=== PATIENT | male | born 1960 | race Caucasian/White ===

== ENCOUNTER → 2020-06-20 | Outpatient (CLI) | payer BC ==
--- NOTE | 2020-06-20 14:37 | XR ---
EXAMINATION TYPE: XR chest 2V DATE OF EXAM: 06/20/2020 COMPARISON: 02/28/2016 HISTORY: 59-year-old male history of COPD and family history of lung cancer. TECHNIQUE: Frontal and lateral views FINDINGS: Heart normal size. Aorta and pulmonary vasculature within normal limits. Hyperinflation. Subtle nodul arity in the lower lung on both sides likely nipple shadow. Slight asymmetric left hilar prominence. Otherwise, no consolidation or pleural effusion. IMPRESSION: 1. COPD. 2. Subtle lower lung nodularity on either side, likely nipple shadow. 3. Some asymmetric left hilar prominence could represent vascular confluence and superimposition shad ow. Given patient's increased risk for development of lung cancer, consider CT of the chest to exclud e any abnormal lymphadenopathy or nodules.
== END | disposition home or self-care (01) ==
LOC: RADXRMAIN 08:39
PROVIDERS: ATTEND Internal Medicine
DX: J44.9 Chronic obstructive pulmonary disease, unspecified (principal)
CPT/HCPCS: 71046

== ENCOUNTER → 2020-06-29 | Outpatient (CLI) | payer BC ==
--- NOTE | 2020-06-29 09:11 | CT ---
EXAMINATION TYPE: CT chest w con DATE OF EXAM: 06/29/2020 COMPARISON: Radiograph 06/20/2020 HISTORY: 59-year-old male abnormal chest x-ray, R91 oh .8. TECHNIQUE: Contiguous axial scanning of the chest after the administration of 100 mL of Isovue 300. Coronal/sagittal reconstructions performed. CT DLP: 158.2mGycm. Automatic exposure control utilized for a dose reduction. FINDINGS: Heart normal size without pericardial effusion. Some LAD calcification is noted. Mild aneurysm aortic root at 4.0 cm. Ectasia upper descending thoracic aorta 3.3 cm. Mild atheroscler otic arch calcifications with conventional vessel branching anatomy. A few nonenlarged mediastinal lymph nodes. No thoracic lymphadenopathy by CT size criteria with parti cular attention to the left hilum though there is a 9 mm calcified granuloma in the left suprahilar r egion which may in part account for the radiographic finding oh. Advanced centrilobular emphysema. No consolidation or pleural effusion. No suspicious pulmonary nodul es or masses. Visualized upper abdomen shows a calcified granuloma within the spleen. There is bilateral renal sami ical thinning compatible with chronic medical renal disease. Bones: Moderate degenerative disc disease mid to lower thoracic spine. IMPRESSION: 1. COPD with advanced emphysema. 2. No suspicious lymphadenopathy, pulmonary nodule, or mass. A 9 mm calcified granuloma in the left s uprahilar region may in part account for the radiographic finding. Bilateral nipple shadows are confi rmed corresponding to the other radiographic findings. All 3. Mildly aneurysmal aortic root at 4.0 cm.
== END | disposition home or self-care (01) ==
LOC: RADCTMAIN 07:48
PROVIDERS: ATTEND Internal Medicine
DX: J43.9 Emphysema, unspecified (principal); J44.9 Chronic obstructive pulmonary disease, unspecified
CPT/HCPCS: 71260; Q9967

== ENCOUNTER → 2020-07-17 | Outpatient (CLI) | payer BC | END | disposition home or self-care (01) | LOC: LABWHC1 16:13 | PROVIDERS: ATTEND Emergency Medicine | DX: Z20.822 Contact with and (suspected) exposure to COVID-19 (principal) ==

== ENCOUNTER → 2020-07-28 | Outpatient (CLI) | payer BC | END | disposition home or self-care (01) | LOC: LABWHC1 16:23 | PROVIDERS: ATTEND Emergency Medicine | DX: Z20.822 Contact with and (suspected) exposure to COVID-19 (principal) | CPT/HCPCS: U0003; C9803; U0005 ==

== ENCOUNTER → 2020-07-31 | Outpatient (CLI) | payer BC | END | disposition home or self-care (01) | LOC: LABWHC1 15:43 | PROVIDERS: ATTEND Emergency Medicine | DX: Z20.822 Contact with and (suspected) exposure to COVID-19 (principal) | CPT/HCPCS: U0003; C9803 ==

== ENCOUNTER 2021-01-27 09:45 | Inpatient (IN) | payer BC ==
[2021-01-27] MEDS ORDERED: ALBUTEROL NEBULIZED 2.5 MG/3 ML INHALATION STA (09:48)
[2021-01-27] MEDS ORDERED: SODIUM CHLORIDE 0.9% 500 ML 500 ML IV STA (09:48)
[2021-01-27] MEDS ORDERED: TERBUTALINE 1 MG/ML VIAL SQ STA (09:48)
[2021-01-27] MEDS ORDERED: IPRATROPIUM 0.5 MG/2.5 ML NEBU INHALATION STA (09:48)
--- NOTE | 2021-01-27 09:51 | ED ---
General Adult HPI - General Stated complaint: elías Time Seen by Provider: 01/27/21 09:45 Source: patient, RN notes reviewed, old records reviewed - History of Present Illness Initial comments: This is a 60-year-old male with past medical history significant for COPD. Patient states about 3 days ago started having worsening difficulty breathing patient states he continued to take his albuterol but it was getting to the point where was helping also called EMS. According to EMS the patient was oxygenating at 66% when they arrived they gave him a few treatments and steroids and put some oxygen on him and he was oxygenating at 96% on arrival. Patient states he does feel better but he still considerably short of breath per patient denies any chest pain patient denies any fever patient states he did have a dry cough but no sputum production. Patient denies any abdominal pain. Patient denies any back pain. Patient denies any lightheadedness or dizziness. Patient states he quit smoking a while ago. - Related Data Home Medications Medication Instructions Recorded Confirmed amLODIPine [Norvasc] 5 mg PO DAILY 02/28/16 02/28/16 busPIRone HCL 15 mg PO BID 02/28/16 02/28/16 traMADol HCl [Ultram] 50 mg PO BID PRN 02/28/16 02/28/16 Previous Rx's Medication Instructions Recorded Aspirin [Adult Low Dose Aspirin EC] 81 mg PO DAILY #30 tab 02/29/16 Allergies Allergy/AdvReac Type Severity Reaction Status Date / Time No Known Allergies Allergy Verified 02/28/16 10:54 Review of Systems ROS Statement: Those systems with pertinent positive or pertinent negative responses have been documented in the HPI. ROS Other: All systems not noted in ROS Statement are negative. 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 History of Any Multi-Drug Resistant Organisms: None Reported Past Surgical History: Heart Catheterization Additional Past Surgical History / Comment(s): R writst ganglion cystectomy, colonoscopy x2, all teeth extracted in preparation for dentures, past ETOH abuse. Past Anesthesia/Blood Transfusion Reactions: No Reported Reaction Past Psychological History: Anxiety Additional Psychological History / Comment(s): Pt states his adult son resides with him. Pt is independent. He drives. Past Alcohol Use History: None Reported Additional Past Alcohol Use History / Comment(s): Pt states he started smoking in 1973 and is a ppd smoker. He states he was a heavy drinker and quit drinking 03/18/10. Past Drug Use History: Marijuana Additional Drug Use History / Comment(s): Pt likes to smoke 1 joint after work a day. - Past Family History Father Family Medical History: Cancer Additional Family Medical History / Comment(s): father of metastatic colon cancer at the age of 39yrs. Mother Family Medical History: Cancer Additional Family Medical History / Comment(s): Mother of metastatic lung cancer at the age of 72yrs. General Exam - General Exam Comments Initial Comments: GENERAL: Patient is well-developed and well-nourished. Patient is nontoxic and well- hydrated and is in moderate distress. ENT: Neck is soft and supple. No significant lymphadenopathy is noted. Oropharynx is clear. Moist mucous membranes. Neck has full range of motion without eliciting any pain. EYES: The sclera were anicteric and conjunctiva were pink and moist. Extraocular movements were intact and pupils were equal round and reactive to light. Eyelids were unremarkable. PULMONARY: Patient is not having good air exchange and he has diffuse expiratory wheezing CARDIOVASCULAR: There is a regular rate and rhythm without any murmurs gallops or rubs. ABDOMEN: Soft and nontender with normal bowel sounds. SKIN: Skin is clear with no lesions or rashes and otherwise unremarkable. NEUROLOGIC: Patient is alert and oriented x3. Cranial nerves II through XII are grossly intact. Motor and sensory are also intact. Normal speech, volume and content. Symmetrical smile. MUSCULOSKELETAL: Normal extremities with adequate strength and full range of motion. No lower extremity swelling or edema. No calf tenderness. LYMPHATICS: No significant lymphadenopathy is noted PSYCHIATRIC: Normal psychiatric evaluation. Course Vital Signs 01/27/21 01/27/21 01/27/21 09:46 10:17 10:35 Temperature Pulse Rate 131 H 112 H 115 H Respiratory 26 H Rate Blood Pressure 213/128 O2 Sat by Pulse 91 L Oximetry 01/27/21 01/27/21 11:02 11:22 Temperature 98.9 F Pulse Rate 110 H Respiratory 18 Rate Blood Pressure 118/88 O2 Sat by Pulse 90 L Oximetry Medical Decision Making - Medical Decision Making EKG shows sinus tachycardia 130 bpm RI interval is 122 QRS is 120 QT intervals 328 QTC is 482. Patient's EKG shows no ST segment elevation or depression. Patient does have a right bundle branch block. Chest x-ray shows right middle lobe infiltrate this was diagnosed 1155. I started the patient on antibiotics immediately. I spoke with Dr. benites he agreed to admit the patient admitted the patient wrote admitting orders. I continue treatments steroids on the floor. I continued antibiotics on the floor. Patient was placed on BiPAP in the emergency department until he could no longer tolerate it secondary to anxiety. - Lab Data Result diagrams: 01/27/21 10:21 11 10:21 Lab Results 01/27/21 01/27/21 01/27/21 Range/Units 10:21 10:21 10:21 WBC 11.9 H (3.8-10.6) k/uL RBC 5.49 (4.30-5.90) m/uL Hgb 16.1 (13.0-17.5) gm/dL Hct 49.9 (39.0-53.0) % MCV 90.9 (80.0-100.0) fL MCH 29.4 (25.0-35.0) pg MCHC 32.3 (31.0-37.0) g/dL RDW 13.7 (11.5-15.5) % Plt Count 242 (150-450) k/uL MPV 8.6 Neutrophils % 75 % Lymphocytes % 13 % Monocytes % 8 % Eosinophils % 0 % Basophils % 1 % Neutrophils # 8.9 H (1.3-7.7) k/uL Lymphocytes # 1.6 (1.0-4.8) k/uL Monocytes # 0.9 (0-1.0) k/uL Eosinophils # 0.0 (0-0.7) k/uL Basophils # 0.1 (0-0.2) k/uL PT 10.7 (9.0-12.0) sec INR 1.0 (<1.2) APTT 27.4 (22.0-30.0) sec Sodium 129 L (137-145) mmol/L Potassium 5.3 H (3.5-5.1) mmol/L Chloride 97 L (98-107) mmol/L Carbon Dioxide 21 L (22-30) mmol/L Anion Gap 11 mmol/L BUN 37 H (9-20) mg/dL Creatinine 1.55 H (0.66-1.25) mg/dL Est GFR (CKD-EPI)AfAm 55 (>60 ml/min/1.73 sqM) Est GFR (CKD-EPI)NonAf 47 (>60 ml/min/1.73 sqM) Glucose 142 H (74-99) mg/dL Plasma Lactic Acid Niall (0.7-2.0) mmol/L Calcium 8.7 (8.4-10.2) mg/dL Magnesium 1.9 (1.6-2.3) mg/dL Total Bilirubin 0.6 (0.2-1.3) mg/dL AST 40 (17-59) U/L ALT 20 (4-49) U/L Alkaline Phosphatase 89 (38-126) U/L Troponin I (0.000-0.034) ng/mL NT-Pro-B Natriuret Pep pg/mL Total Protein 6.3 (6.3-8.2) g/dL Albumin 3.3 L (3.5-5.0) g/dL Coronavirus (PCR) (Not Detectd) 01/27/21 01/27/21 01/27/21 Range/Units 10:21 10:21 10:21 WBC (3.8-10.6) k/uL RBC (4.30-5.90) m/uL Hgb (13.0-17.5) gm/dL Hct (39.0-53.0) % MCV (80.0-100.0) fL MCH (25.0-35.0) pg MCHC (31.0-37.0) g/dL RDW (11.5-15.5) % Plt Count (150-450) k/uL MPV Neutrophils % % Lymphocytes % % Monocytes % % Eosinophils % % Basophils % % Neutrophils # (1.3-7.7) k/uL Lymphocytes # (1.0-4.8) k/uL Monocytes # (0-1.0) k/uL Eosinophils # (0-0.7) k/uL Basophils # (0-0.2) k/uL PT (9.0-12.0) sec INR (<1.2) APTT (22.0-30.0) sec Sodium (137-145) mmol/L Potassium (3.5-5.1) mmol/L Chloride (98-107) mmol/L Carbon Dioxide (22-30) mmol/L Anion Gap mmol/L BUN (9-20) mg/dL Creatinine (0.66-1.25) mg/dL Est GFR (CKD-EPI)AfAm (>60 ml/min/1.73 sqM) Est GFR (CKD-EPI)NonAf (>60 ml/min/1.73 sqM) Glucose (74-99) mg/dL Plasma Lactic Acid Niall 1.0 (0.7-2.0) mmol/L Calcium (8.4-10.2) mg/dL Magnesium (1.6-2.3) mg/dL Total Bilirubin (0.2-1.3) mg/dL AST (17-59) U/L ALT (4-49) U/L Alkaline Phosphatase (38-126) U/L Troponin I 0.039 H* (0.000-0.034) ng/mL NT-Pro-B Natriuret Pep 1920 pg/mL Total Protein (6.3-8.2) g/dL Albumin (3.5-5.0) g/dL Coronavirus (PCR) (Not Detectd) 01/27/21 Range/Units 10:21 WBC (3.8-10.6) k/uL RBC (4.30-5.90) m/uL Hgb (13.0-17.5) gm/dL Hct (39.0-53.0) % MCV (80.0-100.0) fL MCH (25.0-35.0) pg MCHC (31.0-37.0) g/dL RDW (11.5-15.5) % Plt Count (150-450) k/uL MPV Neutrophils % % Lymphocytes % % Monocytes % % Eosinophils % % Basophils % % Neutrophils # (1.3-7.7) k/uL Lymphocytes # (1.0-4.8) k/uL Monocytes # (0-1.0) k/uL Eosinophils # (0-0.7) k/uL Basophils # (0-0.2) k/uL PT (9.0-12.0) sec INR (<1.2) APTT (22.0-30.0) sec Sodium (137-145) mmol/L Potassium (3.5-5.1) mmol/L Chloride (98-107) mmol/L Carbon Dioxide (22-30) mmol/L Anion Gap mmol/L BUN (9-20) mg/dL Creatinine (0.66-1.25) mg/dL Est GFR (CKD-EPI)AfAm (>60 ml/min/1.73 sqM) Est GFR (CKD-EPI)NonAf (>60 ml/min/1.73 sqM) Glucose (74-99) mg/dL Plasma Lactic Acid Niall (0.7-2.0) mmol/L Calcium (8.4-10.2) mg/dL Magnesium (1.6-2.3) mg/dL Total Bilirubin (0.2-1.3) mg/dL AST (17-59) U/L ALT (4-49) U/L Alkaline Phosphatase (38-126) U/L Troponin I (0.000-0.034) ng/mL NT-Pro-B Natriuret Pep pg/mL Total Protein (6.3-8.2) g/dL Albumin (3.5-5.0) g/dL Coronavirus (PCR) Not Detected (Not Detectd) Disposition Clinical Impression: Pneumonia, Acute exacerbation of chronic obstructive pulmonary disease (COPD) Disposition: ADMITTED IP TO THIS HOSP Referrals: Renzo Cohen MD [Primary Care Provider] - 1-2 days Time of Disposition: 11:57
[2021-01-27] MEDS ORDERED: hydrALAZINE HCL 20 MG/ML 1 ML VIAL IVP STA (10:01)
[2021-01-27 10:35] LABS: Basophils # (A) 0.1 k/uL (0-0.2); Basophils % (A) 1 %; Eosinophils % (A) 0 %; HCT 49.9 % (39.0-53.0); HGB 16.1 gm/dL (13.0-17.5); Lymphocytes # (A) 1.6 k/uL (1.0-4.8); Lymphocytes % (A) 13 %; MCH 29.4 pg (25.0-35.0); MCHC 32.3 g/dL (31.0-37.0); MCV 90.9 fL (80.0-100.0); Mean Platelet Volume 8.6; Monocytes # (A) 0.9 k/uL (0-1.0); Monocytes % (A) 8 %; Neutrophils # (A) 8.9 k/uL (1.3-7.7); Neutrophils % (A) 75 %; Platelet Count 242 k/uL (150-450); RBC 5.49 m/uL (4.30-5.90); RDW 13.7 % (11.5-15.5); WBC 11.9 k/uL (3.8-10.6)
--- NOTE | 2021-01-27 10:41 | XR ---
EXAMINATION TYPE: XR chest 1V portable DATE OF EXAM: 01/27/2021 COMPARISON: 02/28/2016 and 06/20/2020 HISTORY: Shortness of breath TECHNIQUE: Single frontal view of the chest is obtained. FINDINGS: There is suggestion of areas of ill-defined partially consolidative opacity in the right m id and lower lung zone which could represent an early pneumonic process. The left lung is clear. There is no pneumothorax or pleural effusion. Heart size is normal and the pu lmonary vasculature is not congested. The osseous structures are intact IMPRESSION: Infiltrates in the right lung as described above. The findings suggest acute cardiopulmo nary disease.
[2021-01-27 10:50] LABS: Albumin 3.3 g/dL (3.5-5.0); Calcium 8.7 mg/dL (8.4-10.2); Magnesium 1.9 mg/dL (1.6-2.3); Potassium 5.3 mmol/L (3.5-5.1); Total Bilirubin 0.6 mg/dL (0.2-1.3); Total Protein 6.3 g/dL (6.3-8.2)
[2021-01-27 10:52] LABS: Partial Thromboplastin Time 27.4 sec (22.0-30.0); Prothrombin Time 10.7 sec (9.0-12.0)
[2021-01-27] MEDS ORDERED: LORazepam 2 MG/ML INJ IV STA (11:20)
[2021-01-27] MEDS ORDERED: LEVOFLOXACIN 750MG-D5W PMX 750 MG in DEXTROSE/WATER 1 150ML.BAG IVPB STA (11:53)
[2021-01-27] MEDS: methylPREDNISolone SOD SUCCI 125 MG/2 ML VIAL IV SCH ×3 (13:38→23:10)
[2021-01-27] MEDS: HEPARIN SODIUM,PORCINE/PF 5,000 UNIT/0.5 ML SYRINGE SQ SCH (20:35)
[2021-01-27] MEDS: IPRATROPIUM-ALBUTEROL 3 ML NEB INHALATION PRN (20:53)
[2021-01-27] MEDS: BUDESONIDE 1 MG/2 ML NEBU INHALATION SCH (20:54)
--- NOTE | 2021-01-27 22:52 | P.HPIM ---
History of Present Illness H&P Date: 01/27/21 Chief Complaint: Difficulty in breathing Patient is a 60-year-old male with a known history of CVA/TIA, hypertension, COPD and previous history of smoking and marijuana use and also previous history of alcohol abuse presents to ER with complaints of worsening shortness of breath and exertional dyspnea for the past 3 days ago. Patient did take his albuterol inhaler and Breo Ellipta at home without much improvement. Patient called EMS and found to have pulse ox 6 6% when they arrived at home. Patient was given breathing treatments and oxygenation improved to 96% on arrival to ER. Patient was placed on BiPAP in the ER. Patient is awake alert and oriented. Denies any complaints of chest pain. No nausea vomiting abdominal pain. Patient does have cough without sputum production. Denies any recent illnesses. No fever no chills. Chest x-ray showed infiltrate in the right lung. This finding suggest acute cardiopulmonary disease. EKG showed sinus tachycardia. Right atrial enlargement. Laboratory data showed WBC 11.9 hemoglobin 16.1 and platelets 242 and neut rophils 8.9 Sodium 129 potassium 5.3 chloride 97, BUN 37 creatinine 1.55 and blood sugar is 142 and troponin 0.0 39, proBNP 1920 COVID-19 PCR not detected Review of Systems Constitutional: Patient denies any fever or chills . No generalized weakness or weight loss. Abdomen: Patient denied nausea vomiting and diarrhea and abdominal pain. Cardiovascular: Patient denies any chest pain + short of breath no palpitations. Respiratory: Patient does have cough without sputum production and shortness of breath. Neurologic: Patient denied any numbness or tingling headache. Musculoskeletal: Patient denies any complaints of joint swelling or deformity. Skin: Negative Psychiatric: Negative Endocrine: No heat or cold intolerance. No recent weight gain. Genitourinary: No dysuria or hematuria. 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 History of Any Multi-Drug Resistant Organisms: None Reported Past Surgical History: Heart Catheterization Additional Past Surgical History / Comment(s): R writst ganglion cystectomy, colonoscopy x2, all teeth extracted in preparation for dentures, past ETOH abuse. Past Anesthesia/Blood Transfusion Reactions: No Reported Reaction Past Psychological History: Anxiety Additional Psychological History / Comment(s): Pt states his adult son resides with him. Pt is independent. He drives. Smoking Status: Former smoker Past Alcohol Use History: None Reported Additional Past Alcohol Use History / Comment(s): Pt states he started smoking in 1973 and is a ppd smoker. He states he was a heavy drinker and quit drinking 03/18/10. Past Drug Use History: Marijuana Additional Drug Use History / Comment(s): Pt likes to smoke 1 joint after work a day. - Past Family History Father Family Medical History: Cancer Additional Family Medical History / Comment(s): father of metastatic colon cancer at the age of 39yrs. Mother Family Medical History: Cancer Additional Family Medical History / Comment(s): Mother of metastatic lung cancer at the age of 72yrs. Medications and Allergies Home Medications Medication Instructions Recorded Confirmed Type Albuterol Sulfate [Proair Hfa] 2 puff INHALATION RT-QID PRN 01/27/21 01/27/21 History Budesonide [Pulmicort Flexhaler] 1 puff INHALATION RT-BID PRN 01/27/21 01/27/21 History Umeclidinium Brm/Vilanterol Tr 1 puff INHALATION RT-DAILY 01/27/21 01/27/21 History [Anoro Ellipta 62.5-25 Mcg INH] Allergies Allergy/AdvReac Type Severity Reaction Status Date / Time No Known Allergies Allergy Verified 01/27/21 12:41 Physical Exam Vitals: Vital Signs Temp Pulse Pulse Resp BP BP Pulse Ox 01/27/21 14:00 97.7 F 92 20 145/82 95 01/27/21 12:52 98.5 F 95 25 H 142/81 95 01/27/21 11:22 98.9 F 01/27/21 11:02 110 H 18 118/88 90 L 01/27/21 10:35 115 H 01/27/21 10:17 112 H 01/27/21 09:46 131 H 26 H 213/128 91 L Intake and Output 01/27/21 01/27/21 01/27/21 06:59 14:59 22:59 Intake Total 580 Balance 580 Intake: Intake, IV Titration 100 Amount Levofloxacin 750Mg-D5w 100 Pmx 750 mg In Dextrose/ Water 1 150ml.bag @ 100 mls/hr IVPB Q24H [facility] Rx#: [id number] Oral 480 Other: # Voids 2 Weight 61.235 kg PHYSICAL EXAMINATION: Patient is lying in the bed comfortably, no acute distress, awake alert and oriented. on bipap. HEENT: Normocephalic. Neck is supple. Pupils reactive. Nostrils clear. Oral cavity is moist. Neck reveals no JVD, carotid bruits, or thyromegaly. CHEST EXAMINATION: Trachea is central. Symmetrical expansion. Patient does have bilateral diffuse rhonchi and wheezing. Diminished sounds throughout.. CARDIAC: Normal S1, S2 with no gallops. No murmurs ABDOMEN: Soft. Bowel sounds normal. No organomegaly. No abdominal bruits. Extremities: reveal no edema. No clubbing or cyanosis Neurologically awake, alert, oriented x3 with well-coordinated movements. No gross focal deficits noted Skin: No rash or skin lesions. Psychiatric: Cooperative. Musculoskeletal: No joint swelling or deformity. Normal range of motion. Results CBC & Chem 7: 01/27/21 10:21 01/27/21 10:21 Labs: Abnormal Lab Results - Last 24 Hours (Table) 01/27/21 01/27/21 01/27/21 Range/Units 10:21 10:21 10:21 WBC 11.9 H (3.8-10.6) k/uL Neutrophils # 8.9 H (1.3-7.7) k/uL Sodium 129 L (137-145) mmol/L Potassium 5.3 H (3.5-5.1) mmol/L Chloride 97 L (98-107) mmol/L Carbon Dioxide 21 L (22-30) mmol/L BUN 37 H (9-20) mg/dL Creatinine 1.55 H (0.66-1.25) mg/dL Glucose 142 H (74-99) mg/dL Troponin I 0.039 H* (0.000-0.034) ng/mL Albumin 3.3 L (3.5-5.0) g/dL Thrombosis Risk Factor Assmnt - DVT/VTE Prophylaxis DVT/VTE Prophylaxis: Pharmacologic Prophylaxis ordered - Choose All That Apply Any of the Below Risk Factors Present?: Yes Each Factor Represents 1 point: Age 41-60 years Other Risk Factors: Yes Each Risk Factor Represents 2 Points: Age 61-74 years Thrombosis Risk Factor Assessment Total Risk Factor Score: 3 Thrombosis Risk Factor Assessment Level: Moderate Risk Assessment and Plan Assessment: Acute hypoxic respiratory failure secondary to COPD exacerbation Right lung pneumonia Elevated troponin level possible type II [place]. Hypovolemic hyponatremia Acute kidney injury likely prerenal Mild hyperkalemia due to LILY Previously of smoking and alcohol abuse Marijuana use History of CVA/TIA DVT prophylaxis with heparin subcu Plan: Patient is currently on BiPAP with settings 12 x 6. Continue with oxygen supple mentation. Patient was started on Solu-Medrol 60 mg IV every 6 hourly, DuoNeb's and Pulmicort inhalation. Continue with antibiotic, Levaquin. Follow-up culture reports. Pulmonary will be consulted. Prognosis guarded at this time. Time with Patient: Greater than 30
[2021-01-28] MEDS: methylPREDNISolone SOD SUCCI 125 MG/2 ML VIAL IV SCH ×3 (05:33→17:26)
[2021-01-28] MEDS: HEPARIN SODIUM,PORCINE/PF 5,000 UNIT/0.5 ML SYRINGE SQ SCH ×2 (08:29→17:26)
[2021-01-28] MEDS: BUDESONIDE 1 MG/2 ML NEBU INHALATION SCH ×2 (08:59→19:50)
[2021-01-28] MEDS: FORMOTEROL FUMARATE 20 MCG/2 ML NEBU INHALATION SCH ×2 (08:59→19:50)
[2021-01-28] MEDS ORDERED: LEVOFLOXACIN 750MG-D5W PMX 750 MG in DEXTROSE/WATER 1 150ML.BAG IVPB SCH (12:00)
[2021-01-28 12:39] LABS: African American GFR (CKD) 52.7 (60.0-200.0); Anion Gap 14.6 mmol/L (4.00-12.00); BUN/Creat Ratio 21.94 Ratio (12.00-20.00); Basophils # (A) 0.02 X 10*3/uL (0.00-0.10); Basophils % (A) 0.2 %; Blood Urea Nitrogen 35.1 mg/dL (9.0-27.0); Calcium 9.3 mg/dL (8.7-10.3); Carbon Dioxide 24.4 mmol/L (21.6-31.8); Eosinophils # (A) 0 X 10*3/uL (0.04-0.35); Eosinophils % (A) 0 %; HCT 49.2 % (39.6-50.0); HGB 15.6 g/dL (13.0-17.0); Lymphocytes # (A) 0.66 X 10*3/uL (0.90-5.00); Lymphocytes % (A) 6.5 %; MCH 29.1 pg (27.0-32.0); MCHC 31.7 g/dL (32.0-37.0); MCV 91.8 fL (80.0-97.0); Mean Platelet Volume 10.9 fL (9.5-12.2); Monocytes # (A) 0.44 X 10*3/uL (0.20-1.00); Monocytes % (A) 4.3 %; Neutrophils # (A) 9.02 X 10*3/uL (1.80-7.70); Neutrophils % (A) 88.7 %; Non-African American GFR(CKD) 45.5 (60.0-200.0); Platelet Count 271 X 10*3/uL (140-440); Potassium 4.4 mmol/L (3.5-5.5); RBC 5.36 X 10*6/uL (4.40-5.60); RDW 14.5 % (11.5-14.5); WBC 10.17 X 10*3/uL (4.50-10.00)
--- NOTE | 2021-01-28 15:20 | P.CNPUL ---
History of Present Illness Consult date: 01/28/21 Requesting physician: Sheng E Jesica Reason for consult: dyspnea, cough, COPD, hypoxemia, abnormal CXR/CT Chief complaint: Shortness of breath. History of present illness: Pulmonary consultation dated 01/28/2021. 60-year-old male with history of severe COPD. I forcefully, he continues to smoke cigarettes. I believe he sees one of my partners in the office. The patient states for last 3 or 4 days, he's been having increasing shortness of breath. In addition, he complaints of wheezing, chest congestion, and cough. Apparently when EMS arrived, his saturations were only 66%. He received some treatments from EMS, and steroids, and saturations improved after receiving supplemental oxygen. Currently, the patient is feeling much better. Certainly not back to baseline. He denies any chest pain or chest pressure. He's not having any fever or chills. He denies any nausea, vomiting, or diarrhea. In addition to COPD, the patient does have a history of hypertension. He also suffers from a history of CVA. Also, after a traumatic fall in 2005, he sustained for rib fractures. White count 10.17, hemoglobin 15.6, hematocrit 49.2, platelet count 371,000. Sodium 137, potassium 4.4, chlorides 98, CO2 24, anion gap 15, BUN 35, and creatinine 1.6. Troponins were 0.039 and 0.017. N- terminal proBNP was 1920. Coronavirus testing was negative. Chest x-ray shows changes of COPD, and some possible infiltrates in the right midlung. Review of Systems REVIEW OF SYSTEMS: CONSTITUTIONAL: [Negative.] NEUROLOGIC: [ Negative.] HEENT: [ Negative.] CARDIAC: [Negative.] PULMONARY: Shortness of breath, chest congestion, chest tightness, wheezing, and cough with some phlegm production. GI: [Negative.] : [Negative.] RHEUMATOLOGIC: [ Negative.] IMMUNOLOGIC: [ Negative.] ENDOCRINE: [Negative. ] DERMATOLOGIC: [Negative.] Past Medical History Past Medical History: CVA/TIA, Hypertension Additional Past Medical History / Comment(s): Pt states he has had 2 CVA's in the past with last one in 2004, "spot"" on R lung, 2006 fell and fractured 4 ribs R side. History of Any Multi-Drug Resistant Organisms: None Reported Past Surgical History: Heart Catheterization Additional Past Surgical History / Comment(s): R writst ganglion cystectomy, colonoscopy x2, all teeth extracted in preparation for dentures, past ETOH abuse. Past Anesthesia/Blood Transfusion Reactions: No Reported Reaction Past Psychological History: Anxiety Additional Psychological History / Comment(s): Pt states his adult son resides with him. Pt is independent. He drives. Smoking Status: Former smoker Past Alcohol Use History: None Reported Additional Past Alcohol Use History / Comment(s): Pt states he started smoking in 1973 and is a ppd smoker. He states he was a heavy drinker and quit drinking 03/18/10. Past Drug Use History: Marijuana Additional Drug Use History / Comment(s): Pt likes to smoke 1 joint after work a day. - Past Family History Father Family Medical History: Cancer Additional Family Medical History / Comment(s): father of metastatic colon cancer at the age of 39yrs. Mother Family Medical History: Cancer Additional Family Medical History / Comment(s): Mother of metastatic lung cancer at the age of 72yrs. Medications and Allergies Home Medications Medication Instructions Recorded Confirmed Type Albuterol Sulfate [Proair Hfa] 2 puff INHALATION RT-QID PRN 01/27/21 01/27/21 History Budesonide [Pulmicort Flexhaler] 1 puff INHALATION RT-BID PRN 01/27/21 01/27/21 History Umeclidinium Brm/Vilanterol Tr 1 puff INHALATION RT-DAILY 01/27/21 01/27/21 History [Anoro Ellipta 62.5-25 Mcg INH] Allergies Allergy/AdvReac Type Severity Reaction Status Date / Time No Known Allergies Allergy Verified 01/27/21 12:41 Physical Exam Osteopathic Statement: *. No significant issues noted on an osteopathic structural exam other than those noted in the History and Physical/Consult. Vitals: Vital Signs Temp Pulse Pulse Resp BP Pulse Ox 01/28/21 14:54 98.1 F 83 21 131/83 96 01/28/21 10:39 97.5 F L 77 23 159/95 97 01/28/21 07:56 97 01/28/21 07:52 81 20 01/28/21 02:00 97.4 F L 81 26 H 116/86 95 01/27/21 21:11 87 01/27/21 20:54 86 01/27/21 20:00 86 12 01/27/21 19:54 97.3 F L 86 12 153/84 97 Intake and Output 01/28/21 01/28/21 01/28/21 06:59 14:59 22:59 Intake Total Balance Intake: Oral Mild conversational dyspnea, oriented 3, without use of accessory muscles or audible wheezing. HEENT examination is grossly unremarkable. Neck supple. Full range of motion. No adenopathy thyromegaly or neck vein distention. Cardiovascular examination reveals regular rhythm rate. S1-S2 normal. No S3 or S4. No discernible murmur noted. Heart sounds are distant. Heart rate 83 bpm. Lungs reveal few some bilateral expiratory rhonchi and expiratory wheezes. Breath sounds are diminished throughout. No crackles. Saturations are 96% on 6 L nasal cannula. Abdomen soft bowel sounds are heard. No masses or tenderness. Extremities are intact. No cyanosis clubbing or edema. Skin is without rash or lesion. Neurologic examination is brief but nonfocal. Results - Laboratory Findings CBC and BMP: 01/28/21 08:36 01/28/21 08:36 PT/INR, D-dimer PT 10.7 sec (9.0-12.0) 01/27/21 10:21 INR 1.0 (<1.2) 01/27/21 10:21 Abnormal lab findings: Abnormal Labs 01/27/21 01/27/21 01/27/21 10:21 10:21 10:21 WBC 11.9 H MCHC Neutrophils # 8.9 H Lymphocytes # Eosinophils # Sodium 129 L Potassium 5.3 H Chloride 97 L Carbon Dioxide 21 L Anion Gap BUN 37 H Creatinine 1.55 H Est GFR (CKD-EPI)AfAm Est GFR (CKD-EPI)NonAf BUN/Creatinine Ratio Glucose 142 H Troponin I 0.039 H* Albumin 3.3 L 01/28/21 01/28/21 08:36 08:36 WBC 10.17 H MCHC 31.7 L Neutrophils # 9.02 H Lymphocytes # 0.66 L Eosinophils # 0 L Sodium Potassium Chloride Carbon Dioxide Anion Gap 14.60 H BUN 35.1 H Creatinine 1.6 H Est GFR (CKD-EPI)AfAm 52.7 L Est GFR (CKD-EPI)NonAf 45.5 L BUN/Creatinine Ratio 21.94 H Glucose 206 H Troponin I Albumin - Diagnostic Findings Chest x-ray: image reviewed Assessment and Plan Assessment: Acute exacerbation of COPD, complicated by possible pneumonia, right midlung. Ongoing tobacco use and nicotine addiction. History of hypertension. History of CVA. Prior history of trauma to the right chest, with multiple rib fractures, 2005. Previous history of heavy alcohol use. Plan: Plan dated 01/28/2021. The patient should get DuoNeb, 4 times a day and when necessary. In addition, the patient should get Pulmicort 1 mg mixed with formoterol 20 g twice a day. In addition, the patient should get Solu-Medrol 60 mg every 6 hours. In addition, the patient should get antibiotics, for possible pneumonia in the right lung area. We we'll continue to follow and make recommendations where appropriate. We counseled the patient about the importance of smoking cessation. Prognosis is guarded. Time with Patient: Greater than 30
[2021-01-29] MEDS: HEPARIN SODIUM,PORCINE/PF 5,000 UNIT/0.5 ML SYRINGE SQ SCH ×3 (04:50→15:54)
[2021-01-29] MEDS: methylPREDNISolone SOD SUCCI 125 MG/2 ML VIAL IV SCH ×4 (07:32→17:17)
[2021-01-29] MEDS: IPRATROPIUM-ALBUTEROL 3 ML NEB INHALATION PRN ×2 (08:22→11:31)
[2021-01-29] MEDS: FORMOTEROL FUMARATE 20 MCG/2 ML NEBU INHALATION SCH ×2 (08:22→19:52)
[2021-01-29] MEDS: BUDESONIDE 1 MG/2 ML NEBU INHALATION SCH ×2 (08:22→19:52)
[2021-01-29 11:00] LABS: Anion Gap 9.7 mmol/L (4.00-12.00); BUN/Creat Ratio 30.86 Ratio (12.00-20.00); Blood Urea Nitrogen 43.2 mg/dL (9.0-27.0); Calcium 9.4 mg/dL (8.7-10.3); Carbon Dioxide 26.3 mmol/L (21.6-31.8); Non-African American GFR(CKD) 53.5 (60.0-200.0); Potassium 5.3 mmol/L (3.5-5.5)
[2021-01-29 11:09] LABS: Basophils # (A) 0.02 X 10*3/uL (0.00-0.10); Basophils % (A) 0.1 %; Eosinophils # (A) 0 X 10*3/uL (0.04-0.35); Eosinophils % (A) 0 %; HCT 44.5 % (39.6-50.0); HGB 14.3 g/dL (13.0-17.0); Lymphocytes # (A) 1.13 X 10*3/uL (0.90-5.00); Lymphocytes % (A) 7.9 %; MCH 28.9 pg (27.0-32.0); MCHC 32.1 g/dL (32.0-37.0); MCV 89.9 fL (80.0-97.0); Mean Platelet Volume 11.1 fL (9.5-12.2); Monocytes # (A) 0.64 X 10*3/uL (0.20-1.00); Monocytes % (A) 4.4 %; Neutrophils # (A) 12.51 X 10*3/uL (1.80-7.70); Platelet Count 272 X 10*3/uL (140-440); RBC 4.95 X 10*6/uL (4.40-5.60); RDW 14.3 % (11.5-14.5); WBC 14.39 X 10*3/uL (4.50-10.00)
--- NOTE | 2021-01-29 12:47 | P.PN ---
Subjective Progress Note Date: 01/29/21 60-year-old male with history of severe COPD. I forcefully, he continues to smoke cigarettes. I believe he sees one of my partners in the office. The patient states for last 3 or 4 days, he's been having increasing shortness of breath. In addition, he complaints of wheezing, chest congestion, and cough. Apparently when EMS arrived, his saturations were only 66%. He received some treatments from EMS, and steroids, and saturations improved after receiving supplemental oxygen. Currently, the patient is feeling much better. Certainly not back to baseline. He denies any chest pain or chest pressure. He's not having any fever or chills. He denies any nausea, vomiting, or diarrhea. In addition to COPD, the patient does have a history of hypertension. He also suffers from a history of CVA. Also, after a traumatic fall in 2005, he sustained for rib fractures. White count 10.17, hemoglobin 15.6, hematocrit 49.2, platelet count 371,000. Sodium 137, potassium 4.4, chlorides 98, CO2 24, anion gap 15, BUN 35, and creatinine 1.6. Troponins were 0.039 and 0.017. N- terminal proBNP was 1920. Coronavirus testing was negative. Chest x-ray shows changes of COPD, and some possible infiltrates in the right midlung. On today's evaluation of 01/29/2021 the patient is better and the patient is less short of breath compared to yesterday. The patient was started with Levaquin, Solu-Medrol, Pulmicort Respules, DuoNeb nebulized treatments on the clock. He has a congested cough. Unable to bring up much of sputum. White cell count is 14.3 and the rest of the blood work and electrodes are within normal limits. He did have some mild troponin leak, minimal at this point in time. Covid 19 testing was negative. Sputum has not been collected for cultures. Objective - Vital Signs Vital signs: Vital Signs Temp 98.5 F 01/29/21 08:00 Pulse 82 01/29/21 11:31 Resp 18 01/29/21 08:00 BP 140/87 01/29/21 08:00 Pulse Ox 94 L 01/29/21 08:22 Intake & Output 01/28/21 01/29/21 01/29/21 18:59 06:59 18:59 Other: # Voids 3 3 - Exam Mild conversational dyspnea, oriented 3, without use of accessory muscles or audible wheezing. HEENT examination is grossly unremarkable. Neck supple. Full range of motion. No adenopathy thyromegaly or neck vein distention. Cardiovascular examination reveals regular rhythm rate. S1-S2 normal. No S3 or S4. No discernible murmur noted. Heart sounds are distant. Heart rate 83 bpm. Lungs reveal few some bilateral expiratory rhonchi and expiratory wheezes. Breath sounds are diminished throughout. No crackles. Saturations are 96% on 6 L nasal cannula. Abdomen soft bowel sounds are heard. No masses or tenderness. Extremities are intact. No cyanosis clubbing or edema. Skin is without rash or lesion. Neurologic examination is brief but nonfocal. - Labs CBC & Chem 7: 01/29/21 07:22 01/29/21 07:22 Labs: Abnormal Lab Results - Last 24 Hours (Table) 01/29/21 01/29/21 Range/Units 07:22 07:22 WBC 14.39 H (4.50-10.00) X 10*3/uL Immature Gran # 0.09 H (0.00-0.04) X 10*3/uL Neutrophils # 12.51 H (1.80-7.70) X 10*3/uL Eosinophils # 0 L (0.04-0.35) X 10*3/uL BUN 43.2 H (9.0-27.0) mg/dL Est GFR (CKD-EPI)NonAf 53.5 L (60.0-200.0) BUN/Creatinine Ratio 30.86 H (12.00-20.00) Ratio Glucose 150 H (70-110) mg/dL Assessment and Plan Plan: Acute exacerbation of COPD, complicated by possible pneumonia, right midlung. Clinically improving. The patient is on Levaquin. The patient will be giving us a sputum sample for cultures. Less short of breath compared to yesterday. Ongoing tobacco use and nicotine addiction. History of hypertension. History of CVA. Prior history of trauma to the right chest, with multiple rib fractures, 2005. Previous history of heavy alcohol use. Plan Repeat chest x-ray in the morning Continue Levaquin Added Perforomist in combination with budesonide nebulized treatments twice a day Continue DuoNeb about treatments around the clock Heparin subcu for DVT prophylaxis Oxygen therapy to maintain a saturation above 90% Continued IV Solu-Medrol COVID 19 vaccination has been obtained by this patient is marked We'll continue to follow
[2021-01-29 14:39] VITALS: BMI 18.8
--- NOTE | 2021-01-29 23:21 | P.PN ---
Subjective Progress Note Date: 01/28/21 Patient is a 60-year-old male with a known history of CVA/TIA, hypertension, COPD and previous history of smoking and marijuana use and also previous history of alcohol abuse presents to ER with complaints of worsening shortness of breath and exertional dyspnea for the past 3 days ago. Patient did take his albuterol inhaler and Breo Ellipta at home without much improvement. Patient called EMS and found to have pulse ox 6 6% when they arrived at home. Patient was given breathing treatments and oxygenation improved to 96% on arrival to ER. Patient was placed on BiPAP in the ER. Patient is awake alert and oriented. Denies any complaints of chest pain. No nausea vomiting abdominal pain. Patient does have cough without sputum production. Denies any recent illnesses. No fever no chills. Chest x-ray showed infiltrate in the right lung. This finding suggest acute cardiopulmonary disease. EKG showed sinus tachycardia. Right atrial enlargement. Laboratory data showed WBC 11.9 hemoglobin 16.1 and platelets 242 and neutrophils 8.9 Sodium 129 potassium 5.3 chloride 97, BUN 37 creatinine 1.55 and blood sugar is 142 and troponin 0.0 39, proBNP 1920 COVID-19 PCR not detected 01/28/2021 Patient is currently lying in the bed. Awake alert and oriented. Appears to been short of breath and bilateral diminished air entry. Otherwise patient is nasal cannula oxygen. Off BiPAP. Patient has been afebrile. Continued on duo nebs IV steroids and breathing treatments. Pulmonary is on board. Laboratory showed WBC 10.1 hemoglobin 15.6 and platelets 271 BUN 35 and creatinine 1.6 and blood sugar is 206-second troponin level 0.017. Current medications reviewed. Objective - Vital Signs Vital signs: Vital Signs Temp 98.1 F 01/28/21 14:54 Pulse 83 01/28/21 14:54 Resp 21 01/28/21 14:54 BP 131/83 01/28/21 14:54 Pulse Ox 96 01/28/21 14:54 Intake & Output 01/27/21 01/28/21 01/28/21 19:59 06:59 18:59 Intake Total Balance Weight Intake: Intake, IV Titration Amount Levofloxacin 750Mg-D5w Pmx 750 mg In Dextrose/ Water 1 150ml.bag @ 100 mls/hr IVPB Q24H [facility] Rx#: [id number] Oral Other: # Voids - Exam PHYSICAL EXAMINATION: Patient is lying in the bed comfortably, no acute distress, awake alert and oriented. HEENT: Normocephalic. Neck is supple. Pupils reactive. Nostrils clear. Oral cavity is moist. Neck reveals no JVD, carotid bruits, or thyromegaly. CHEST EXAMINATION: Trachea is central. Symmetrical expansion. Patient does have bilateral diffuse rhonchi and wheezing. Diminished sounds throughout.. CARDIAC: Normal S1, S2 with no gallops. No murmurs ABDOMEN: Soft. Bowel sounds normal. No organomegaly. No abdominal bruits. Extremities: reveal no edema. No clubbing or cyanosis Neurologically awake, alert, oriented x3 with well-coordinated movements. No gross focal deficits noted Skin: No rash or skin lesions. Psychiatric: Cooperative. Musculoskeletal: No joint swelling or deformity. Normal range of motion. - Labs CBC & Chem 7: 01/29/21 07:22 01/29/21 07:22 Labs: Abnormal Lab Results - Last 24 Hours (Table) 01/28/21 01/28/21 Range/Units 08:36 08:36 WBC 10.17 H (4.50-10.00) X 10*3/uL MCHC 31.7 L (32.0-37.0) g/dL Neutrophils # 9.02 H (1.80-7.70) X 10*3/uL Lymphocytes # 0.66 L (0.90-5.00) X 10*3/uL Eosinophils # 0 L (0.04-0.35) X 10*3/uL Anion Gap 14.60 H (4.00-12.00) mmol/L BUN 35.1 H (9.0-27.0) mg/dL Creatinine 1.6 H (0.6-1.5) mg/dL Est GFR (CKD-EPI)AfAm 52.7 L (60.0-200.0) Est GFR (CKD-EPI)NonAf 45.5 L (60.0-200.0) BUN/Creatinine Ratio 21.94 H (12.00-20.00) Ratio Glucose 206 H (70-110) mg/dL Assessment and Plan Assessment: Acute hypoxic respiratory failure secondary to COPD exacerbation. off bipap Right lung pneumonia Elevated troponin level possible type II [place]. Hypovolemic hyponatremia Acute kidney injury likely prerenal Mild hyperkalemia due to LILY Previously of smoking and alcohol abuse Marijuana use History of CVA/TIA DVT prophylaxis with heparin subcu Plan: Patient was on BiPAP with settings 12 x 6. Continue with oxygen supplementation via [place]. continue on Solu-Medrol 60 mg IV every 6 hourly, DuoNeb's and Pulmicort inhal ation. Continue with antibiotic, Levaquin. Follow-up culture reports. Pulmonary is following. Prognosis guarded at this time. Time with Patient: Greater than 30
--- NOTE | 2021-01-29 23:24 | P.PN ---
Subjective Progress Note Date: 01/29/21 Principal diagnosis: Acute hypoxic respiratory failure secondary to COPD exacerbation Patient is a 60-year-old male with a known history of CVA/TIA, hypertension, COPD and previous history of smoking and marijuana use and also previous history of alcohol abuse presents to ER with complaints of worsening shortness of breath and exertional dyspnea for the past 3 days ago. Patient did take his albuterol inhaler and Breo Ellipta at home without much improvement. Patient called EMS and found to have pulse ox 6 6% when they arrived at home. Patient was given breathing treatments and oxygenation improved to 96% on arrival to ER. Patient was placed on BiPAP in the ER. Patient is awake alert and oriented. Denies any complaints of chest pain. No nausea vomiting abdominal pain. Patient does have cough without sputum production. Denies any recent illnesses. No fever no chills. Chest x-ray showed infiltrate in the right lung. This finding suggest acute cardiopulmonary disease. EKG showed sinus tachycardia. Right atrial enlargement. Laboratory data showed WBC 11.9 hemoglobin 16.1 and platelets 242 and neutrophils 8.9 Sodium 129 potassium 5.3 chloride 97, BUN 37 creatinine 1.55 and blood sugar is 142 and troponin 0.0 39, proBNP 1920 COVID-19 PCR not detected 01/28/2021 Patient is currently lying in the bed. Awake alert and oriented. Appears to been short of breath and bilateral diminished air entry. Otherwise patient is nasal cannula oxygen. Off BiPAP. Patient has been afebrile. Continued on duo nebs IV steroids and breathing treatments. Pulmonary is on board. Laboratory showed WBC 10.1 hemoglobin 15.6 and platelets 271 BUN 35 and creatinine 1.6 and blood sugar is 206-second troponin level 0.017. 01/29/2021 Patient is awake alert and oriented x3. Breathing status is better compared to yesterday. Still bilateral diminished air entry,. Improved rhonchi and minimal wheezing. Patient has been cannula antibiotics duo nebs and oxygen supplementation at 4 L via nasal cannula. Pulmonary is following. Lab data showed WBC 14.39 likely due to steroids BUN 43 and creatinine 1.4 and blood sugar is 150. Current medications reviewed. Objective - Vital Signs Vital signs: Vital Signs Temp 98.4 F 01/29/21 14:00 Pulse 81 01/29/21 14:00 Resp 20 01/29/21 14:00 BP 146/77 01/29/21 14:00 Pulse Ox 96 01/29/21 14:00 Intake & Output 01/28/21 01/29/21 01/29/21 18:59 06:59 18:59 Output Total 800 Balance -800 Weight 61.235 kg Output: Urine 800 Other: # Voids 3 3 - Exam PHYSICAL EXAMINATION: Patient is lying in the bed comfortably, no acute distress, awake alert and oriented. HEENT: Normocephalic. Neck is supple. Pupils reactive. Nostrils clear. Oral cavity is moist. Neck reveals no JVD, carotid bruits, or thyromegaly. CHEST EXAMINATION: Trachea is central. Symmetrical expansion. Patient does have bilateral diffuse rhonchi and wheezing. Diminished sounds throughout.. CARDIAC: Normal S1, S2 with no gallops. No murmurs ABDOMEN: Soft. Bowel sounds normal. No organomegaly. No abdominal bruits. Extremities: reveal no edema. No clubbing or cyanosis Neurologically awake, alert, oriented x3 with well-coordinated movements. No gross focal deficits noted Skin: No rash or skin lesions. Psychiatric: Cooperative. Musculoskeletal: No joint swelling or deformity. Normal range of motion. - Labs CBC & Chem 7: 01/29/21 07:22 01/29/21 07:22 Labs: Abnormal Lab Results - Last 24 Hours (Table) 01/29/21 01/29/21 Range/Units 07:22 07:22 WBC 14.39 H (4.50-10.00) X 10*3/uL Immature Gran # 0.09 H (0.00-0.04) X 10*3/uL Neutrophils # 12.51 H (1.80-7.70) X 10*3/uL Eosinophils # 0 L (0.04-0.35) X 10*3/uL BUN 43.2 H (9.0-27.0) mg/dL Est GFR (CKD-EPI)NonAf 53.5 L (60.0-200.0) BUN/Creatinine Ratio 30.86 H (12.00-20.00) Ratio Glucose 150 H (70-110) mg/dL Assessment and Plan Assessment: Acute hypoxic respiratory failure secondary to COPD exacerbation. off bipap Right mid lung pneumonia Elevated troponin level possible type II [place]. Hypovolemic hyponatremia Acute kidney injury likely prerenal Mild hyperkalemia due to LILY Previously of smoking and alcohol abuse Marijuana use History of CVA/TIA DVT prophylaxis with heparin subcu Plan: Patient was on BiPAP with settings 12 x 6. Continue with oxygen supplementation via [place]. continue on Solu-Medrol 60 mg IV every 6 hourly, DuoNeb's and Pulmicort inhalation. Continue with antibiotic, Levaquin. Follow-up culture reports. Pulmonary is following. Prognosis guarded at this time. Time with Patient: Greater than 30
[2021-01-30] MEDS: HEPARIN SODIUM,PORCINE/PF 5,000 UNIT/0.5 ML SYRINGE SQ SCH ×4 (00:19→23:36)
[2021-01-30] MEDS: methylPREDNISolone SOD SUCCI 125 MG/2 ML VIAL IV SCH ×5 (00:19→23:36)
--- NOTE | 2021-01-30 06:43 | XR ---
EXAMINATION TYPE: XR chest 2V DATE OF EXAM: 01/30/2021 COMPARISON: Chest x-ray [address] chest June 29, 2020 HISTORY: Dyspnea. TECHNIQUE: Frontal and lateral views of the chest are obtained. FINDINGS: There is background chronic emphysematous change without suspicious focal air space opacit y, pleural effusion, or pneumothorax seen. The cardiac silhouette size is stable and within normal l imits with atherosclerotic change in the aortic knob. The osseous structures are intact. IMPRESSION: Chronic emphysematous change without acute pulmonary process.
[2021-01-30] MEDS: PANTOPRAZOLE 40 MG TABLET PO SCH (09:19)
[2021-01-30] MEDS: BUDESONIDE 1 MG/2 ML NEBU INHALATION SCH ×2 (09:27→20:15)
[2021-01-30] MEDS: FORMOTEROL FUMARATE 20 MCG/2 ML NEBU INHALATION SCH ×2 (09:27→20:34)
[2021-01-30] MEDS: IPRATROPIUM-ALBUTEROL 3 ML NEB INHALATION PRN ×3 (09:27→20:15)
[2021-01-30 10:14] LABS: HCT 43.7 % (39.6-50.0); HGB 14.2 g/dL (13.0-17.0); MCH 29.9 pg (27.0-32.0); MCHC 32.5 g/dL (32.0-37.0); Mean Platelet Volume 10.9 fL (9.5-12.2); Platelet Count 300 X 10*3/uL (140-440); RBC 4.75 X 10*6/uL (4.40-5.60); RDW 14.5 % (11.5-14.5); WBC 13.51 X 10*3/uL (4.50-10.00)
[2021-01-30 11:01] LABS: Anion Gap 9.1 mmol/L (4.00-12.00); BUN/Creat Ratio 27.43 Ratio (12.00-20.00); Blood Urea Nitrogen 38.4 mg/dL (9.0-27.0); Calcium 9.2 mg/dL (8.7-10.3); Carbon Dioxide 26.9 mmol/L (21.6-31.8); Non-African American GFR(CKD) 53.5 (60.0-200.0)
[2021-01-30] MEDS ORDERED: LEVOFLOXACIN 750MG-D5W PMX 750 MG in DEXTROSE/WATER 1 150ML.BAG IVPB SCH (12:00)
[2021-01-30 12:23] LABS: Basophils # (A) 0.04 X 10*3/uL (0.00-0.10); Basophils % (A) 0.3 %; Eosinophils # (A) 0 X 10*3/uL (0.04-0.35); Eosinophils % (A) 0 %; Lymphocytes # (A) 1.08 X 10*3/uL (0.90-5.00); Monocytes # (A) 0.49 X 10*3/uL (0.20-1.00); Monocytes % (A) 3.6 %; Neutrophils % (A) 87.4 %
--- NOTE | 2021-01-30 12:28 | P.PN ---
Subjective Progress Note Date: 01/30/21 60-year-old male with history of severe COPD. I forcefully, he continues to smoke cigarettes. I believe he sees one of my partners in the office. The patient states for last 3 or 4 days, he's been having increasing shortness of breath. In addition, he complaints of wheezing, chest congestion, and cough. Apparently when EMS arrived, his saturations were only 66%. He received some treatments from EMS, and steroids, and saturations improved after receiving supplemental oxygen. Currently, the patient is feeling much better. Certainly not back to baseline. He denies any chest pain or chest pressure. He's not having any fever or chills. He denies any nausea, vomiting, or diarrhea. In addition to COPD, the patient does have a history of hypertension. He also suffers from a history of CVA. Also, after a traumatic fall in 2005, he sustained for rib fractures. White count 10.17, hemoglobin 15.6, hematocrit 49.2, platelet count 371,000. Sodium 137, potassium 4.4, chlorides 98, CO2 24, anion gap 15, BUN 35, and creatinine 1.6. Troponins were 0.039 and 0.017. N- terminal proBNP was 1920. Coronavirus testing was negative. Chest x-ray shows changes of COPD, and some possible infiltrates in the right midlung. On today's evaluation of 01/29/2021 the patient is better and the patient is less short of breath compared to yesterday. The patient was started with Levaquin, Solu-Medrol, Pulmicort Respules, DuoNeb nebulized treatments on the clock. He has a congested cough. Unable to bring up much of sputum. White cell count is 14.3 and the rest of the blood work and electrodes are within normal limits. He did have some mild troponin leak, minimal at this point in time. Covid 19 testing was negative. Sputum has not been collected for cultures. On today's evaluation of 01/30/2021, the patient is feeling better. Less short of breath. A repeat chest x-ray was done and showed clearing of the right midlung pneumonia. He has background COPD. White cell count of 13.5. The rest of the electrolytes show a BUN of 38 with a creatinine of 1.4 and his potassium level is at 6.0, probably hemolyzed and this is to be monitored. Over 19 testing was negative. The patient remains on bronchodilators. The patient remains on systemic steroids with IV Solu-Medrol at a dose of 60 mg IV every 6 hours. He is also using a combination of Perforomist and Pulmicort neb last treatment twice a day. No fever. No chills. He is on heparin subcu for DVT prophylaxis. Sputum Gram stain and culture has not been collected. Objective - Vital Signs Vital signs: Vital Signs Temp 98.3 F 01/30/21 07:31 Pulse 76 01/30/21 09:48 Resp 18 01/30/21 07:31 BP 152/82 01/30/21 07:31 Pulse Ox 95 01/30/21 09:30 Intake & Output 01/29/21 01/30/21 01/30/21 18:59 06:59 18:59 Output Total 800 600 Balance -800 -600 Weight 61.235 kg Output: Urine 800 600 Other: # Voids 3 - Exam Mild conversational dyspnea, oriented 3, without use of accessory muscles or audible wheezing. Currently on 3 L of oxygen by nasal cannula. HEENT examination is grossly unremarkable. Neck supple. Full range of motion. No adenopathy thyromegaly or neck vein distention. Cardiovascular examination reveals regular rhythm rate. S1-S2 normal. No S3 or S4. No discernible murmur noted. Heart sounds are distant. Heart rate 83 bpm. Lungs reveal few some bilateral expiratory rhonchi and expiratory wheezes. Breath sounds are diminished throughout. No crackles. Saturations are 96% on 3 L nasal cannula. Abdomen soft bowel sounds are heard. No masses or tenderness. Extremities are intact. No cyanosis clubbing or edema. Skin is without rash or lesion. Neurologic examination is brief but nonfocal. - Labs CBC & Chem 7: 01/30/21 06:22 01/30/21 06:22 Labs: Abnormal Lab Results - Last 24 Hours (Table) 01/30/21 01/30/21 Range/Units 06:22 06:22 WBC 13.51 H (4.50-10.00) X 10*3/uL Potassium 6.0 H (3.5-5.5) mmol/L BUN 38.4 H (9.0-27.0) mg/dL Est GFR (CKD-EPI)NonAf 53.5 L (60.0-200.0) BUN/Creatinine Ratio 27.43 H (12.00-20.00) Ratio Glucose 142 H (70-110) mg/dL Assessment and Plan Plan: Acute exacerbation of COPD, complicated by possible pneumonia, right midlung. Clinically improving. The patient is on Levaquin. The patient will be giving us a sputum sample for cultures. Less short of breath compared to yesterday. The patient is improving. The chest x-ray shows clearing of the right lung pneumonia. Nevertheless, the patient continues to be hypoxic and the patient is still on 3 L of oxygen by nasal cannula. Ongoing tobacco use and nicotine addiction. History of hypertension. History of CVA. Prior history of trauma to the right chest, with multiple rib fractures, 2005. Previous history of heavy alcohol use. Plan Repeat chest x-ray in the morning showing improvement in the right lung pneumonia m Continue Levaquin Perforomist in combination with budesonide nebulized treatments twice a day Continue DuoNeb about treatments around the clock Heparin subcu for DVT prophylaxis Oxygen therapy to maintain a saturation above 90% Continued IV Solu-Medrol COVID 19 vaccination has been obtained by this patient is marked We'll continue to follow I'm going to evaluate this patient oxygen level on room air and see if he needs home oxygen. Home probably today or first thing in the morning depending on his condition. I think
[2021-01-31 01:59] VITALS: RESP 16
[2021-01-31] MEDS: methylPREDNISolone SOD SUCCI 125 MG/2 ML VIAL IV SCH ×2 (05:44→13:26)
[2021-01-31] MEDS: FORMOTEROL FUMARATE 20 MCG/2 ML NEBU INHALATION SCH (07:25)
[2021-01-31] MEDS: BUDESONIDE 1 MG/2 ML NEBU INHALATION SCH (07:26)
[2021-01-31] MEDS: IPRATROPIUM-ALBUTEROL 3 ML NEB INHALATION PRN (07:26)
[2021-01-31 08:12] VITALS: BP 142/79; PULSE 69; TEMP 97.7
[2021-01-31] MEDS: PANTOPRAZOLE 40 MG TABLET PO SCH (09:30)
[2021-01-31] MEDS: HEPARIN SODIUM,PORCINE/PF 5,000 UNIT/0.5 ML SYRINGE SQ SCH (09:30)
[2021-01-31 10:09] LABS: Basophils # (A) 0.05 X 10*3/uL (0.00-0.10); Basophils % (A) 0.4 %; Eosinophils # (A) 0.02 X 10*3/uL (0.04-0.35); Eosinophils % (A) 0.2 %; HGB 13.4 g/dL (13.0-17.0); Lymphocytes # (A) 0.85 X 10*3/uL (0.90-5.00); Lymphocytes % (A) 7.5 %; MCH 28.7 pg (27.0-32.0); MCHC 31.9 g/dL (32.0-37.0); MCV 89.9 fL (80.0-97.0); Mean Platelet Volume 10.8 fL (9.5-12.2); Monocytes % (A) 5.3 %; Neutrophils # (A) 9.34 X 10*3/uL (1.80-7.70); Neutrophils % (A) 82.9 %; Platelet Count 312 X 10*3/uL (140-440); RBC 4.67 X 10*6/uL (4.40-5.60); RDW 14.3 % (11.5-14.5); WBC 11.28 X 10*3/uL (4.50-10.00)
[2021-01-31 12:51] LABS: Anion Gap 10.4 mmol/L (4.00-12.00); Calcium 8.9 mg/dL (8.7-10.3); Carbon Dioxide 25.6 mmol/L (21.6-31.8); Non-African American GFR(CKD) 49.2 (60.0-200.0); Potassium 5.2 mmol/L (3.5-5.5)
--- NOTE | 2021-01-31 13:15 | P.PN ---
Subjective Progress Note Date: 01/31/21 60-year-old male with history of severe COPD. I forcefully, he continues to smoke cigarettes. I believe he sees one of my partners in the office. The patient states for last 3 or 4 days, he's been having increasing shortness of breath. In addition, he complaints of wheezing, chest congestion, and cough. Apparently when EMS arrived, his saturations were only 66%. He received some treatments from EMS, and steroids, and saturations improved after receiving supplemental oxygen. Currently, the patient is feeling much better. Certainly not back to baseline. He denies any chest pain or chest pressure. He's not having any fever or chills. He denies any nausea, vomiting, or diarrhea. In addition to COPD, the patient does have a history of hypertension. He also suffers from a history of CVA. Also, after a traumatic fall in 2005, he sustained for rib fractures. White count 10.17, hemoglobin 15.6, hematocrit 49.2, platelet count 371,000. Sodium 137, potassium 4.4, chlorides 98, CO2 24, anion gap 15, BUN 35, and creatinine 1.6. Troponins were 0.039 and 0.017. N- terminal proBNP was 1920. Coronavirus testing was negative. Chest x-ray shows changes of COPD, and some possible infiltrates in the right midlung. On today's evaluation of 01/29/2021 the patient is better and the patient is less short of breath compared to yesterday. The patient was started with Levaquin, Solu-Medrol, Pulmicort Respules, DuoNeb nebulized treatments on the clock. He has a congested cough. Unable to bring up much of sputum. White cell count is 14.3 and the rest of the blood work and electrodes are within normal limits. He did have some mild troponin leak, minimal at this point in time. Covid 19 testing was negative. Sputum has not been collected for cultures. On today's evaluation of 01/30/2021, the patient is feeling better. Less short of breath. A repeat chest x-ray was done and showed clearing of the right midlung pneumonia. He has background COPD. White cell count of 13.5. The rest of the electrolytes show a BUN of 38 with a creatinine of 1.4 and his potassium level is at 6.0, probably hemolyzed and this is to be monitored. Over 19 testing was negative. The patient remains on bronchodilators. The patient remains on systemic steroids with IV Solu-Medrol at a dose of 60 mg IV every 6 hours. He is also using a combination of Perforomist and Pulmicort neb last treatment twice a day. No fever. No chills. He is on heparin subcu for DVT prophylaxis. Sputum Gram stain and culture has not been collected. On 1109 2020, the patient is doing well. He is on room air oxygen and he is maintaining his saturation above 90% with activity and at rest. As such, the patient seems to be able to go home today. No new complaints. Less bronchospastic and wheezy and he was showing clearing of his right lung pneumonia and he was also treated for an acute COPD exacerbation. White cell count is 11. Creatinine stable at 1.5, the patient's chronic kidney disease. Objective - Vital Signs Vital signs: Vital Signs Temp 97.7 F 01/31/21 08:00 Pulse 69 01/31/21 08:00 Resp 16 01/31/21 08:00 BP 142/79 01/31/21 08:00 Pulse Ox 97 01/31/21 08:00 Intake & Output 01/30/21 01/31/21 01/31/21 18:59 06:59 18:59 Intake Total 240 Output Total 500 Balance -500 240 Intake: Oral 240 Output: Urine 500 Other: # Voids 4 - Exam Mild conversational dyspnea, oriented 3, without use of accessory muscles or audible wheezing. Currently on [facility] examination is grossly unremarkable. Neck supple. Full range of motion. No adenopathy thyromegaly or neck vein distention. Cardiovascular examination reveals regular rhythm rate. S1-S2 normal. No S3 or S4. No discernible murmur noted. Heart sounds are distant. Heart rate 83 bpm. Lungs reveal few some bilateral expiratory rhonchi and expiratory wheezes. Breath sounds are diminished throughout. No crackles. Saturations are 96% on 3 L nasal cannula. Abdomen soft bowel sounds are heard. No masses or tenderness. Extremities are intact. No cyanosis clubbing or edema. Skin is without rash or lesion. Neurologic examination is brief but nonfocal. - Labs CBC & Chem 7: 01/31/21 06:16 01/31/21 06:16 Labs: Abnormal Lab Results - Last 24 Hours (Table) 01/31/21 01/31/21 Range/Units 06:16 06:16 WBC 11.28 H (4.50-10.00) X 10*3/uL MCHC 31.9 L (32.0-37.0) g/dL Immature Gran # 0.42 H (0.00-0.04) X 10*3/uL Neutrophils # 9.34 H (1.80-7.70) X 10*3/uL Lymphocytes # 0.85 L (0.90-5.00) X 10*3/uL Eosinophils # 0.02 L (0.04-0.35) X 10*3/uL BUN 33.0 H (9.0-27.0) mg/dL Est GFR (CKD-EPI)AfAm 57.0 L (60.0-200.0) Est GFR (CKD-EPI)NonAf 49.2 L (60.0-200.0) BUN/Creatinine Ratio 22.00 H (12.00-20.00) Ratio Glucose 141 H (70-110) mg/dL Assessment and Plan Plan: Acute exacerbation of COPD, complicated by possible pneumonia, right midlung. Clinically improving. The patient is on Levaquin. The patient will be giving us a sputum sample for cultures. Less short of breath compared to yesterday. The patient is improving. The chest x-ray shows clearing of the right lung pneumonia. Nevertheless, the patient continues to be hypoxic and the patient is on room air oxygen for now the patient is feeling much better. Ongoing tobacco use and nicotine addiction. History of hypertension. History of CVA. Prior history of trauma to the right chest, with multiple rib fractures, 2005. Previous history of heavy alcohol use. Plan Repeat chest x-ray in the morning showing improvement in the right lung pneumonia m Continue Levaquin, completed his total of seven-day course Perforomist in combination with budesonide nebulized treatments twice a day Continue DuoNeb about treatments around the clock Heparin subcu for DVT prophylaxis Patient is on room air oxygen Discontinue IV Solu Medrol and put the patient prednisone burst taper The patient will need home nebulizer and DuoNeb nebulized treatments around the clock, and he will be asked to continue Anoro on outpatient basis one inhalation a day. Smoking cessation counseling was done. Follow-up in the office.
[2021-02-01] MEDS ORDERED: predniSONE 20 MG TAB PO SCH (09:00)
== END 2021-01-31 15:09 | disposition home or self-care (01) | DRG 190 ==
LOC: EC 09:45 → 4SSUR 11:57
PROVIDERS: ADMIT Internal Medicine; ATTEND Internal Medicine
PROC: 5A09357 Assistance with Respiratory Ventilation, Less than 24 Consecutive Hours, Continuous Positive Airway Pressure (ICD-10-PCS; principal; 2021-01-28)
DX: J44.1 Chronic obstructive pulmonary disease with (acute) exacerbation (principal); J18.9 Pneumonia, unspecified organism; J96.01 Acute respiratory failure with hypoxia; I21.A1 Myocardial infarction type 2; E87.1 Hypo-osmolality and hyponatremia; N17.9 Acute kidney failure, unspecified; J44.0 Chronic obstructive pulmonary disease with (acute) lower respiratory infection; Z20.822 Contact with and (suspected) exposure to COVID-19; I13.10 Hypertensive heart and chronic kidney disease without heart failure, with stage 1 through stage 4 chronic kidney disease, or unspecified chronic kidney disease; N18.9 Chronic kidney disease, unspecified; E86.1 Hypovolemia; E87.5 Hyperkalemia; F17.210 Nicotine dependence, cigarettes, uncomplicated; F41.9 Anxiety disorder, unspecified; I45.10 Unspecified right bundle-branch block; F10.10 Alcohol abuse, uncomplicated; F12.90 Cannabis use, unspecified, uncomplicated; Z86.73 Personal history of transient ischemic attack (TIA), and cerebral infarction without residual deficits; Z79.82 Long term (current) use of aspirin; Z91.81 History of falling; Z98.890 Other specified postprocedural states; Z71.6 Tobacco abuse counseling
CPT/HCPCS: 36415; 71045; 71046; 80048; 80053; 83605; 83735; 83880; 84132; 84484; 85025; 85610; 85730; 87635; 93005; 94640; 94660; 94760; 96361; 96374; 99285

== ENCOUNTER → 2024-08-03 | Outpatient (CLI) | payer MEDICARE ==
--- NOTE | 2024-08-03 13:39 | CTL ---
EXAMINATION TYPE: CT Low Dose Lung DATE OF EXAM ORDERED: 08/03/2024 COMPARISON: 06/29/2020 CLINICAL INDICATION: Male, 63 years old with history of Z12.2, F17.210; PHH, personal tobacco use, [place] ng cancer screening, History of Smoking/tobacco use. TECHNIQUE: Low dose computed tomography scan was performed through the chest at 1 mm thick sections a nd reconstructed images in multiple planes at 1 mm and [address] DLP: 68.[address] CTDI: 1.7 mGy Automated exposure control for dose reduction was used. 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 Comparison: None TECHNIQUE: Low dose computed tomography scan was performed through the chest at 1 mm thick sections a nd reconstructed images in multiple planes at 1 mm and [address] DIAGNOSTIC QUALITY: Satisfactory FINDINGS: There are moderate to marked emphysematous changes. There has been interval development of scattered somewhat ill-defined predominantly reticular densiti es to appears to most likely represent interstitial scars. There is no mediastinal, hilar or axillary adenopathy. There is no pleural effusion, pleural thickening or pneumothorax. No focal osseous lesions are seen. Limited scans the upper abdomen reveals no gross abnormality IMPRESSION: 1. Lung rads Category 4A, 5-15% chance of malignancy. Follow-up CT thorax in 3 months is recommended. 2. Moderate to marked emphysematous changes. [facility], , 08/03/2024 1:37 PM
== END | disposition home or self-care (01) ==
LOC: RADCTMAIN 10:03
PROVIDERS: ATTEND Internal Medicine Geriatric Medicine
DX: Z12.2 Encounter for screening for malignant neoplasm of respiratory organs (principal); F17.210 Nicotine dependence, cigarettes, uncomplicated; J43.9 Emphysema, unspecified
CPT/HCPCS: 71271